=== PATIENT | female | born 1985 | race African-American/Black ===

== ENCOUNTER 2024-06-06 15:43 | Emergency (ER) | payer OTHER ==
[2024-06-06] MEDS ORDERED: ACETAMINOPHEN 500 MG TAB ONE (16:19)
[2024-06-06] MEDS ORDERED: ONDANSETRON 4 MG/2 ML VIAL ONE (16:19)
[2024-06-06] MEDS ORDERED: IBUPROFEN 400 MG TAB ONE (16:20)
[2024-06-06] MEDS ORDERED: NA CHLORIDE 0.9% 1,000 ML ONE (16:20)
[2024-06-06 16:32] LABS: Influenza A Ag Negative; Influenza B Ag Negative
[2024-06-06 16:33] LABS: SARS-CoV-2 Antigen Rapid Res Positive (Negative)
[2024-06-06] MEDS ORDERED: PROMETHAZINE INJ 25 MG/ML AMP ONE (17:00)
[2024-06-06] MEDS ORDERED: MAGNES/ALUMIN/SIMET 30ML UCUP ONE (17:05)
[2024-06-06] MEDS ORDERED: LIDOCAINE VISCOUS 2% 10ML ORAL SOLN ONE (17:05)
--- NOTE | 2024-06-06 17:06 | ER ---
Nurse's Notes [facility] Name: Nidia Piña Age: 38 yrs Sex: Female : 1985 Arrival Date: 06/06/2024 Time: 15:43 Bed 8 Private MD: Diagnosis: SARS-associated coronavirus as the cause of diseases classified elsewhere Presentation: 06/06 16:00 Chief complaint: Upper abdominal pain and N/V x 2 days. Coronavirus screen: At this hb time, the client does not indicate any symptoms associated with coronavirus-19. Ebola Screen: No symptoms or risks identified at this time. Initial Sepsis Screen: Does the patient meet any 2 criteria? No. Patient's initial sepsis screen is negative. Does the patient have a suspected source of infection? No. Patient's initial sepsis screen is negative. Risk Assessment: Do you want to hurt yourself or someone else? Patient reports no desire to harm self or others. Onset of symptoms was June 05, 2024. 16:00 Method Of Arrival: Wheelchair hb 16:00 Acuity: BRINA 3 hb Historical: - Allergies: 16:03 No Known Allergies; hb - Home Meds: 16:05 None [Active]; hb - PMHx: 16:05 None; hb - PSHx: 16:05 None; hb - Immunization history:: Adult Immunizations up to date. - Infectious Disease History:: Denies. - Social history:: Smoking status: Patient denies any tobacco usage or history of. Screenin:10 [facility] ED Fall Risk Assessment (Adult) History of falling in the last 3 months, aa5 including since admission No falls in past 3 months (0 pts) Confusion or Disorientation No (0 pts) Intoxicated or Sedated No (0 pts) Impaired Gait No (0 pts) Mobility Assist Device Used No (0 pt) Altered Elimination No (0 pt) Score/Fall Risk Level 0 - 2 = Low Risk Oriented to surroundings, Maintained a safe environment, Educated pt \\T\\ family on fall prevention, incl call for assistance when getting out of bed, Assessed \\T\\ reinforced patient's understanding of fall precautions. Abuse screen: Denies threats or abuse. Nutritional screening: No deficits noted. Tuberculosis screening: No symptoms or risk factors identified. Assessment: 16:10 General: Appears uncomfortable, Behavior is calm, cooperative, Reports chills for 2-3 aa5 days, feeling ill for 2-3 days. Pain: Complains of pain in head Pain currently is 5 out of 10 on a pain scale. Quality of pain is described as aching, throbbing, Pain began 2-3 days ago. Is continuous. Neuro: Level of Consciousness is awake, alert, obeys commands, Oriented to person, place, time, situation. Cardiovascular: Heart tones S1 S2 present Rhythm is regular. Respiratory: Airway is patent Respiratory effort is even, unlabored, Respiratory pattern is regular, symmetrical. GI: Abdomen is round non-distended, Bowel sounds present X 4 quads. Abd is soft and non tender X 4 quads. Reports nausea, vomiting. : No signs and/or symptoms were reported regarding the genitourinary system. EENT: No signs and/or symptoms were reported regarding the EENT system. Derm: Skin is dry, Skin is normal, Skin temperature is warm. Musculoskeletal: Range of motion: intact in all extremities. 16:59 Reassessment: To bedside to administer PO medications, pt sat up in bed and began dry aa5 heaving, pt c/o nausea, provider was notified. . 16:59 Neuro: Level of Consciousness is awake, alert, obeys commands, Oriented to person, aa5 place, time, situation. Respiratory: Airway is patent Respiratory effort is even, unlabored, Respiratory pattern is regular, symmetrical. Derm: Skin is dry, Skin is normal, Skin temperature is warm. 17:02 Reassessment: Pt refused Phenergan administration for c/o nausea, pt states "I want to aa5 throw up; is there anything you can give me to make me throw up?", notified pt goal is to control nausea rather than induce vomiting, pt verbalizes understanding. Pt agrees to take GI cocktail. . Vital Signs: 16:00 BP 109 / 67; Pulse 126; Resp 20; Temp 100.7(A); Pulse Ox 100% on R/A; Pain 5/10; hb 16:13 Temp 99.2(O); aa5 16:25 Pulse 115; dr5 16:33 BP 111 / 60; Pulse 109; Resp 20 S; Pulse Ox 98% on R/A; aa5 16:00 Pain Scale: Adult hb ED Course: 15:44 Patient arrived in ED. im 15:47 Kelly, Hany, COLUMNIST/COMMENTATOR-C [facility]. dr5 15:47 Apolinar Rice MD is Attending Physician. dr5 15:52 Dinora Chowdhury, MARCO is Primary Nurse. aa5 16:03 Triage completed. hb 16:04 Arm band placed on. hb 16:10 Patient has correct armband on for positive identification. Bed in low position. Call aa5 light in reach. Side rails up X 1. Pulse ox on. NIBP on. 16:14 COVID swab sent to lab. Flu and/or RSV swab sent to lab. Strep swab sent to lab. aa5 Inserted saline lock: 20 gauge in right antecubital area, using aseptic technique. Flushed with 10 mL NS. 17:14 No provider procedures requiring assistance completed. aa5 17:16 IV discontinued, intact, bleeding controlled, No redness/swelling at site. Pressure aa5 dressing applied. Administered Medications: 16:24 Drug: NS 0.9% IV 1000 ml IV at 1000 ml once; to be given as a bolus over 60 minutes aa5 Route: IV; Rate: 1000 ml; Site: right antecubital; 17:16 Follow up: IV Status: Completed infusion; IV Intake: 1000ml aa5 16:24 Drug: Ondansetron IVP 4 mg IVP once; over 2 minutes Route: IVP; Site: right antecubital;aa5 16:31 Follow up: Response: No adverse reaction aa5 17:02 Not Given (Patient Refused; Pt states "I want to vomit"): .5 mg IVP once aa5 17:03 Not Given (Patient Refused): [id number] mg PO once aa5 17:03 Not Given (Patient Refused): [id number] mg PO once aa5 17:07 Drug: GI Cocktail without - (Maalox PO 30 ml, Lidocaine Mucous Membrane 2 % 15 aa5 ml) PO once Route: PO; 17:16 Follow up: Response: No adverse reaction aa5 Medication: 17:14 VIS not applicable for this client. aa5 Intake: 17:16 IV: 1000ml; Total: 1000ml. aa5 Outcome: 17:05 Discharge ordered by . dr5 17:16 Discharged to home ambulatory, with family, aa5 17:16 Condition: stable 17:16 Discharge instructions given to patient, Instructed on discharge instructions, follow up and referral plans. medication usage, Demonstrated understanding of instructions, follow-up care, medications, Prescriptions given X 2, 17:18 Patient left the ED. aa5 Signatures: Dinora Chowdhury RN RN aa5 Alba Cline RN RN Jennifer Mitchell Dustin, COLUMNIST/COMMENTATOR-C COLUMNIST/COMMENTATOR-Cdr5
--- NOTE | 2024-06-06 17:06 | EDPHYS ---
Physician Documentation [facility] Name: Nidia Piña Age: 38 yrs Sex: Female : 1985 Arrival Date: 06/06/2024 Time: 15:43 Bed 8 Private MD: ED Physician Apolinar Rice HPI: 06/06 17:33 This 38 yrs old Black Female presents to ER via Wheelchair with complaints of Flu dr5 Symptoms, Vomiting. 17:33 Onset: The symptoms/episode began/occurred 2 day(s) ago. Patient is a 38-year-old dr5 female with no past history coming in with flulike symptoms for the past 2 days. Patient reports she has nausea and fever.. Historical: - Allergies: 16:03 No Known Allergies; hb - Home Meds: 16:05 None [Active]; hb - PMHx: 16:05 None; hb - PSHx: 16:05 None; hb - Immunization history:: Adult Immunizations up to date. - Infectious Disease History:: Denies. - Social history:: Smoking status: Patient denies any tobacco usage or history of. ROS: 17:33 Constitutional: as per hpi dr5 Exam: 17:33 Constitutional: This is a well developed, well nourished patient who is awake, alert, dr5 and in no acute distress. Head/Face: Normocephalic, atraumatic. Eyes: Pupils equal round and reactive to light, extra-ocular motions intact. Lids and lashes normal. Conjunctiva and sclera are non-icteric and not injected. Cornea within normal limits. Periorbital areas with no swelling, redness, or edema. Neck: Trachea midline, no thyromegaly or masses palpated, and no cervical lymphadenopathy. Supple, full range of motion without nuchal rigidity, or vertebral point tenderness. No Meningismus. 17:33 Cardiovascular: Rate: tachycardic, Pulses: 17:33 Skin: Appearance: normal except for affected area, 17:33 Neuro: Orientation: is normal, Vital Signs: 16:00 BP 109 / 67; Pulse 126; Resp 20; Temp 100.7(A); Pulse Ox 100% on R/A; Pain 5/10; hb 16:13 Temp 99.2(O); aa5 16:25 Pulse 115; dr5 16:33 BP 111 / 60; Pulse 109; Resp 20 S; Pulse Ox 98% on R/A; aa5 16:00 Pain Scale: Adult hb MDM: 15:47 Medical Screening Exam initiated dr5 17:33 Differential diagnosis: viral Infection, bacterial infection, URI. Data reviewed: vital dr5 signs, nurses notes, lab test result(s), COVID-19. I considered the following discharge prescriptions or medication management in the emergency department Medications were administered in the Emergency Department. See MAR. Care significantly affected by the following Social Determinants of Health: Poor access to healthcare and/or lack of insurance, Poor access to transportation, Problems related to employment. Counseling: I had a detailed discussion with the patient and/or guardian regarding the historical points, exam findings, and any diagnostic results supporting the discharge/admit diagnosis, the presence of at least one elevated blood pressure reading (>120/80) during this emergency department visit, lab results, the need for outpatient follow up, for definitive care, a family practitioner, to return to the emergency department if symptoms worsen or persist or if there are any questions or concerns that arise at home. ED course: Patient found to be COVID-positive. Tachycardia has improved after liter of fluids and Zofran. Will give patient steroid Dosepak as well as antivirals to help with COVID-19 virus. Recommended patient alternate Tylenol Motrin as needed for fever. Increase hydration. Follow-up with primary care doctor this week as needed. Strict ER precautions given. 06/06 15:55 Order name: COVID-19 Ag + Flu A+B Ag; Complete Time: 16:37 [facility] 06/06 15:55 Order name: Group A Streptococcus Rapid; Complete Time: 16:26 [facility] 06/06 16:19 Order name: Test, Serum; Complete Time: 17:08 [facility] 06/06 16:29 Order name: Throat Culture EDMS Administered Medications: 16:24 Drug: NS 0.9% IV 1000 ml IV at 1000 ml once; to be given as a bolus over 60 minutes aa5 Route: IV; Rate: 1000 ml; Site: right antecubital; 17:16 Follow up: IV Status: Completed infusion; IV Intake: 1000ml aa5 16:24 Drug: Ondansetron IVP 4 mg IVP once; over 2 minutes Route: IVP; Site: right antecubital;aa5 16:31 Follow up: Response: No adverse reaction aa5 17:02 Not Given (Patient Refused; Pt states "I want to vomit"): .5 mg IVP once aa5 17:03 Not Given (Patient Refused): [id number] mg PO once aa5 17:03 Not Given (Patient Refused): [id number] mg PO once aa5 17:07 Drug: GI Cocktail without - (Maalox PO 30 ml, Lidocaine Mucous Membrane 2 % 15 aa5 ml) PO once Route: PO; 17:16 Follow up: Response: No adverse reaction aa5 Disposition Summary: 06/06/24 17:05 Discharge Ordered Notes: Location: Home dr5 Condition: Stable dr5 Diagnosis - SARS-associated coronavirus as the cause of diseases classified elsewhere dr5 Followup: dr5 - With: Emergency Department - When: As needed - Reason: Worsening of condition Followup: dr5 - With: Private Physician - When: 1 - 2 days - Reason: Recheck today's complaints, Continuance of care, Re-evaluation by your physician Discharge Instructions: - Discharge Summary Sheet dr5 - COVID-19 dr5 Forms: - Medication Reconciliation Form dr5 - Antibiotic Education dr5 - Patient Portal Instructions dr5 - Leadership Thank You Letter dr5 Prescriptions: - Paxlovid 300 mg (150 mg x 2)-100 mg Oral Tablet, Dose Pack - take 1 dose pack ORAL route per package directions; 1 packet; Refills: 0, dr5 Product Selection Permitted - Medrol (Yoandy) 4 mg Oral Tablets, Dose Pack - take 1 tablet ORAL route as directed - follow package instructions; 1 packet; dr5 Refills: 0, Product Selection Permitted Signatures: Dispatcher [employer] Dinora Castro, RN RN aa5 Alba Cline RN RN Hany Kelly, DISTRIBUTION DRIVER-C DISTRIBUTION DRIVER-Cdr5
[2024-06-06 17:23] VITALS: TEMP 99.2
[2024-06-06 17:25] VITALS: BP 111/60; O2SAT 98
== END 2024-06-06 17:18 | disposition home or self-care (01) ==
LOC: ER 15:43
DX: U07.1 COVID-19 (principal)
CPT/HCPCS: 96361; 87070; 36415; 84703; 96374; 99284; 87428; J2550; J2405; J7030